=== PATIENT | female | born 1995 | race Caucasian/White ===

== ENCOUNTER 2019-02-27 21:24 | Emergency (ER) | payer SELFPAY ==
[~2019-02-27] VITALS: Ht 157.5 cm; Wt 50.0 kg
[~2019-02-27 21:24] MED LIST: CEFTIN 250250 MG/TAB PO; DEPO MEDROL40 MG/ML; DOXYCYCLINE 10100 MG PO; KLOR-CON M2020 MEQ PO; NORCO 325 MG-51 TAB PO; PYRIDIUM 100MG100 MG PO; ZOFRAN ODT4 MG PO
[2019-02-27 21:27] VITALS: BP 120/94; TEMP 97.8
[2019-02-27 22:21] LABS: BASO # 0.1 (0.0-0.2); EOS # 0.2 (0.0-0.7); EOS % 2.6 % (0-4.0); HEMATOCRIT 42.9 % (37.0-47.0); HEMOGLOBIN 14.9 g/dl (12.5-16.0); LYMPH # 2.5 (1.2-3.4); LYMPH % 35.4 % (20.0-51.0); MEAN CELL VOLUME 96 fl (80.0-100.0); MEAN CORPUSCULAR HEMOGLOBIN 33 pg (27.0-31.0); MEAN CORPUSCULAR HGB CONC 35 g/dl (33.0-37.0); MEAN PLATELET VOLUME 8.8 fl (7.4-10.4); MONO # 0.3 (0.1-0.6); MONO % 4.7 % (1.7-9.3); PLATELET COUNT 225 K/mm3 (130-400); RED BLOOD COUNT 4.49 M/mm3 (4.10-5.30); REDCELL DISTRIBUTION WIDTH-CV 13.1 % (11.5-14.5)
[2019-02-27 22:34] LABS: ALANINE AMINOTRANSFERASE 180 U/L (9-52); ALBUMIN 4.8 gm/dL (3.5-5.0); ALCOHOL(ethanol),MEDICAL 200 mg/dL; ALKALINE PHOSPHATASE 55 U/L (50-136); ANION GAP 9 mmol/L (7-16); AST,SGOT 94 U/L (15-37); BILIRUBIN,TOTAL 0.3 mg/dL (0.0-1.0); BLOOD UREA NITROGEN 6 mg/dL (7-17); CALCIUM 9.3 mg/dL (8.4-10.2); CARBON DIOXIDE 24 mmol/L (22-30); CHLORIDE 109 mmol/L (98-107); CREATININE, serum 0.56 (0.52-1.25); GLUCOSE 85 mg/dL (74-106); SODIUM 143 mmol/L (137-145); TOTAL PROTEIN 7.5 gm/dL (6.4-8.2)
[2019-02-27 22:35] LABS: ACETAMINOPHEN < 10 ug/mL (10-30); C-REACTIVE PROTEIN < 0.5 mg/dL (0.0-0.9); SALICYLATE < 1.0 mg/dL
[2019-02-27 23:48] LABS: COLLECTION METHOD CLEAN CATCH
[2019-02-27 23:56] LABS: MUCOUS Present /lpf; PH 6 (5-8); SQUAMOUS EPITHELIAL 0-2 /hpf; URINE APPEARANCE Clear; URINE BACTERIA None Seen /hpf; URINE BILIRUBIN Negative (NEGATIVE); URINE BLOOD Negative (NEGATIVE); URINE COLOR Yellow; URINE GLUCOSE Negative (NEGATIVE); URINE KETONE Negative (NEGATIVE); URINE LEUKOCYTE ESTERASE Negative (NEGATIVE); URINE NITRATE Negative (NEGATIVE); URINE PROTEIN(semi-quant) 1+ (NEGATIVE); URINE RBC 0-2 /hpf; URINE UROBILINOGEN Negative (NEGATIVE); URINE WBC 0-2 /hpf
[2019-02-28 00:03] LABS: TRICYCLIC ANTIDEPRESS URINE NEGATIVE
[2019-02-28 03:45] VITALS: PULSE 93
== END 2019-02-28 03:45 | disposition home or self-care (01) ==
LOC: COL.ER 21:24
PROVIDERS: Emergency Medicine
DX: F10.129 Alcohol abuse with intoxication, unspecified (principal); R41.82 Altered mental status, unspecified; Y90.7 Blood alcohol level of 200-239 mg/100 ml
CPT/HCPCS: J7030

== ENCOUNTER 2020-07-03 10:10 | Emergency (ER) | payer SELFPAY ==
[~2020-07-03] VITALS: Ht 157.5 cm; Wt 59.1 kg
[2020-07-03 10:24] VITALS: TEMP 98.6
[2020-07-03 11:13] LABS: COLLECTION METHOD CATHETER
[2020-07-03 11:56] LABS: MUCOUS Present /lpf; PH 6 (5-8); SQUAMOUS EPITHELIAL 0-2 /hpf; URINE APPEARANCE Cloudy; URINE BACTERIA Rare /hpf; URINE BILIRUBIN Negative (NEGATIVE); URINE BLOOD Negative (NEGATIVE); URINE COLOR Amber; URINE GLUCOSE Negative (NEGATIVE); URINE KETONE 1+ (NEGATIVE); URINE LEUKOCYTE ESTERASE 3+ (NEGATIVE); URINE NITRATE Positive (NEGATIVE); URINE PROTEIN(semi-quant) 2+ (NEGATIVE); URINE UROBILINOGEN >=4.0 mg/dL (NEGATIVE); URINE WBC >50 /hpf
[2020-07-03] MEDS ORDERED: ZOFRAN ODT4 MG PO (12:06)
[2020-07-03] MEDS ORDERED: CIPRO 500MG TA500 MG PO (12:06)
[2020-07-03] MEDS ORDERED: TYLENOL 325MG325 MG PO (12:08)
[2020-07-03 12:25] VITALS: BP 121/72; PULSE 99
== END 2020-07-03 12:25 | disposition home or self-care (01) ==
LOC: COL.ER 10:10
PROVIDERS: Emergency Medicine
DX: N39.0 Urinary tract infection, site not specified (principal); Z32.02 Encounter for pregnancy test, result negative; Z88.0 Allergy status to penicillin; Z88.1 Allergy status to other antibiotic agents; Z88.2 Allergy status to sulfonamides
CPT/HCPCS: J0696

== ENCOUNTER 2020-10-13 10:22 | Emergency (ER) | payer SELFPAY ==
[~2020-10-13] VITALS: Ht 160 cm; Wt 61.4 kg
[~2020-10-13 10:22] MED LIST changes: +CIPRO 500MG TA500 MG PO; +TYLENOL 325MG325 MG PO
[2020-10-13 10:43] VITALS: TEMP 98.4
[2020-10-13 11:14] LABS: BASO % 0.1 % (0.0-2.0); GRAN # 11.4 (1.4-6.5); GRAN % 84.2 % (42.2-75.2); HEMATOCRIT 39.4 % (37.0-47.0); HEMOGLOBIN 14.1 g/dl (12.5-16.0); LYMPH # 1.5 (1.2-3.4); LYMPH % 11.1 % (20.0-51.0); MEAN CELL VOLUME 90 fl (80.0-100.0); MEAN CORPUSCULAR HEMOGLOBIN 32 pg (27.0-31.0); MEAN CORPUSCULAR HGB CONC 36 g/dl (33.0-37.0); MEAN PLATELET VOLUME 9.4 fl (7.4-10.4); MONO # 0.6 (0.1-0.6); MONO % 4.3 % (1.7-9.3); PLATELET COUNT 269 K/mm3 (130-400); RED BLOOD COUNT 4.36 M/mm3 (4.10-5.30); REDCELL DISTRIBUTION WIDTH-CV 12.4 % (11.5-14.5)
[2020-10-13 11:25] LABS: BILIRUBIN,TOTAL 1.1 mg/dL (0.0-1.0); CALCIUM 10.4 mg/dL (8.4-10.2); CREATININE, serum 0.44 (0.52-1.25); POTASSIUM 3.4 mmol/L (3.4-5.0); TOTAL PROTEIN 8.1 gm/dL (6.4-8.2)
[2020-10-13 13:08] LABS: COLLECTION METHOD CLEAN CATCH
[2020-10-13 13:15] LABS: MUCOUS Present /lpf; PH 6 (5-8); URINE APPEARANCE Clear; URINE BACTERIA None Seen /hpf; URINE BILIRUBIN Negative (NEGATIVE); URINE BLOOD Negative (NEGATIVE); URINE COLOR Yellow; URINE GLUCOSE Negative (NEGATIVE); URINE KETONE 2+ (NEGATIVE); URINE LEUKOCYTE ESTERASE Negative (NEGATIVE); URINE NITRATE Negative (NEGATIVE); URINE PROTEIN(semi-quant) 2+ (NEGATIVE); URINE RBC 0-2 /hpf; URINE UROBILINOGEN Negative (NEGATIVE)
[2020-10-13] MEDS ORDERED: REGLAN 10MG10 MG/TAB PO (13:21)
[2020-10-13 13:58] VITALS: BP 110/65; PULSE 78
== END 2020-10-13 14:00 | disposition home or self-care (01) ==
LOC: COL.ER 10:22
PROVIDERS: Physician Assistant
DX: O21.9 Vomiting of pregnancy, unspecified (principal); O99.282 Endocrine, nutritional and metabolic diseases complicating pregnancy, second trimester; E86.0 Dehydration; E87.1 Hypo-osmolality and hyponatremia; O26.892 Other specified pregnancy related conditions, second trimester; R82.4 Acetonuria; Z3A.15 15 weeks gestation of pregnancy
CPT/HCPCS: J2765; J7030

== ENCOUNTER → 2020-12-13 | Emergency (ER) | payer SELFPAY ==
[~2020-12-13] MED LIST changes: +REGLAN 10MG10 MG/TAB PO
== END ==
LOC: COL.ER 12:24
DX: R69 Illness, unspecified (principal)

== ENCOUNTER 2022-06-12 16:36 | Emergency (ER) | payer SELFPAY ==
[~2022-06-12] VITALS: Ht 160 cm; Wt 59.1 kg
[2022-06-12 16:45] VITALS: TEMP 97.7
[2022-06-12 17:18] LABS: COLLECTION METHOD CLEAN CATCH
[2022-06-12 17:21] LABS: BASO % 0.1 % (0.0-2.0); EOS % 0.1 % (0.0-4.0); GRAN # 9.7 K/mm3 (1.4-6.5); GRAN % 84.9 % (42.2-75.2); HEMATOCRIT 45.1 % (37.0-47.0); HEMOGLOBIN 16.6 g/dl (12.5-16.0); LYMPH % 8.3 % (20.0-51.0); MEAN CELL VOLUME 96 fl (80.0-100.0); MEAN CORPUSCULAR HEMOGLOBIN 35 pg (27-31); MEAN CORPUSCULAR HGB CONC 37 g/dl (33.0-37.0); MEAN PLATELET VOLUME 10.1 fl (7.4-10.4); MONO # 0.7 K/mm3 (0.1-0.6); MONO % 6.2 % (1.7-9.3); PLATELET COUNT 164 K/mm3 (130-400); RED BLOOD COUNT 4.72 M/mm3 (4.10-5.30); REDCELL DISTRIBUTION WIDTH-CV 12.2 % (11.5-14.5)
[2022-06-12 17:25] LABS: URINE APPEARANCE Cloudy (CLEAR/HAZY); URINE COLOR Amber (YELLOW); URINE GLUCOSE Negative (NEGATIVE); URINE KETONE 3+ (NEGATIVE); URINE NITRATE Positive (NEGATIVE); URINE PROTEIN(semi-quant) 2+ (NEGATIVE)
[2022-06-12 17:26] LABS: URINE BLOOD 1+ (NEGATIVE)
[2022-06-12 17:27] LABS: MUCOUS Present (NOT PRESENT); SQUAMOUS EPITHELIAL 0-2 /hpf (0-10); URINE BACTERIA Many /hpf (NONE SEEN)
[2022-06-12 17:39] LABS: ALBUMIN 5.2 gm/dL (3.5-5.0); BILIRUBIN,TOTAL 2.8 mg/dL (0.2-1.2); C-REACTIVE PROTEIN 0.3 mg/dL (0.00-0.50); CALCIUM 11.3 mg/dL (8.4-10.2); CREATININE, serum 0.83 mg/dL (0.57-1.11); TOTAL PROTEIN 8.9 gm/dL (6.2-8.1)
[2022-06-12] MEDS ORDERED: CEFTIN 250250 MG/TAB PO (17:48)
[2022-06-12] MEDS ORDERED: ZOFRAN ODT4 MG PO (18:14)
[2022-06-12 18:32] VITALS: BP 134/96; PULSE 88
[2022-06-12 18:32] LABS: MONOSCREEN NEGATIVE
== END 2022-06-12 18:32 | disposition home or self-care (01) ==
LOC: COL.ER 16:36
PROVIDERS: Family Medicine
DX: K52.9 Noninfective gastroenteritis and colitis, unspecified (principal); N39.0 Urinary tract infection, site not specified; R79.89 Other specified abnormal findings of blood chemistry; E80.7 Disorder of bilirubin metabolism, unspecified; Z88.1 Allergy status to other antibiotic agents; Z20.822 Contact with and (suspected) exposure to COVID-19
CPT/HCPCS: J0696; J2405; J7120

== ENCOUNTER 2023-08-30 18:44 | Emergency (ER) | payer SELFPAY ==
[~2023-08-30] VITALS: Ht 160 cm; Wt 59.1 kg
[2023-08-30 18:47] VITALS: TEMP 98.4
[2023-08-30] MEDS ORDERED: NS 1,000 ML IV ONE (19:15)
[2023-08-30 19:35] LABS: COLLECTION METHOD CLEAN CATCH
[2023-08-30 19:39] LABS: BASO # 0.1 K/mm3 (0.0-0.2); BASO % 1.3 % (0.0-2.0); EOS # 0.2 K/mm3 (0.0-0.7); EOS % 2.2 % (0.0-4.0); GRAN # 4.2 K/mm3 (1.4-6.5); GRAN % 58.8 % (42.2-75.2); HEMATOCRIT 45.2 % (37.0-47.0); LYMPH # 2.3 K/mm3 (1.2-3.4); LYMPH % 32.1 % (20.0-51.0); MEAN CELL VOLUME 99 fl (80.0-100.0); MEAN CORPUSCULAR HEMOGLOBIN 35 pg (27-31); MEAN CORPUSCULAR HGB CONC 35 g/dl (33.0-37.0); MEAN PLATELET VOLUME 8.6 fl (7.4-10.4); MONO # 0.4 K/mm3 (0.1-0.6); MONO % 5.3 % (1.7-9.3); PLATELET COUNT 191 K/mm3 (130-400); RED BLOOD COUNT 4.59 M/mm3 (4.10-5.30); REDCELL DISTRIBUTION WIDTH-CV 12.7 % (11.5-14.5)
[2023-08-30 19:43] LABS: URINE APPEARANCE CLEAR (CLEAR/HAZY); URINE BLOOD NEGATIVE (NEGATIVE); URINE COLOR YELLOW (YELLOW); URINE GLUCOSE NEGATIVE (NEGATIVE); URINE KETONE NEGATIVE (NEGATIVE); URINE NITRATE NEGATIVE (NEGATIVE); URINE PROTEIN(semi-quant) 1+ (NEGATIVE); URINE UROBILINOGEN 0.2 E.U/dL (0.2-1.0)
[2023-08-30 19:56] LABS: ALANINE AMINOTRANSFERASE 177 U/L (0-55); ALBUMIN 4.9 g/dL (3.5-5.0); ALKALINE PHOSPHATASE 119 U/L (40-150); ANION GAP 17 mmol/L (7-16); AST,SGOT 271 U/L (5-34); BILIRUBIN,TOTAL 0.9 mg/dL (0.2-1.2); C-REACTIVE PROTEIN 0.05 mg/dL (0.00-0.50); CALCIUM 10.5 mg/dL (8.4-10.2); CHLORIDE 106 mEq/L (98-107); CREATININE, serum 0.73 mg/dL (0.57-1.11); GLUCOSE 94 mg/dL (70-99); POTASSIUM 3.5 mEq/L (3.5-4.5); SODIUM 143 mEq/L (136-145); TOTAL PROTEIN 8.5 g/dl (6.2-8.1)
[2023-08-30 20:00] LABS: BLOOD UREA NITROGEN < 5 mg/dL (7-19)
[2023-08-30 21:10] VITALS: BP 158/99; PULSE 80
== END 2023-08-30 21:11 | disposition home or self-care (01) ==
LOC: COL.ER 18:44
PROVIDERS: Nurse Practitioner
DX: R04.2 Hemoptysis (principal); R74.01 Elevation of levels of liver transaminase levels
CPT/HCPCS: J7030